=== PATIENT | male | born 1975 | race Caucasian/White ===

== ENCOUNTER 2018-08-23 22:59 | Inpatient (IN) | payer MEDICAID, OTHER ==
[2018-08-24 00:01] LABS: Amphetamine Screen,Urine Not Detected (NotDetected); Barbiturate Screen,Urine Not Detected (NotDetected); Benzodiazepines Screen,Urine Not Detected (NotDetected); Cocaine Screen,Urine Not Detected (NotDetected); Methadone Screen, Urine Not Detected (NotDetected); Opiate Screen,Urine Not Detected (NotDetected); Oxycodone Screen, Urine Not Detected (NotDetected); Phencyclidine Screen,Urine Not Detected (NotDetected); Tricyclic Antidepressant,Urine Not Detected (NotDetected); Urn Cannabinoid Scrn Not Detected (NotDetected)
--- NOTE | 2018-08-24 00:10 | ED ---
Psych HPI - General Chief Complaint: Psychiatric Symptoms Stated Complaint: Family Petition Suicidal Time Seen by Provider: 08/23/18 23:15 Source: patient, family () Mode of arrival: ambulatory Limitations: no limitations - History of Present Illness Initial Comments: This patient is a 43-year-old man is here for psychiatric evaluation. When I interview the patient, he states that he is here because she had a disagreement with his and they argued. The presents additional information, that the patient had made a noose and was stating that he planned to hang himself when the family went to sleep tonight. The patient had also at one point told her that he may kill all of them instead. The patient does have previous history of depression and had been taking an antidepressant until a number of months ago when he had a flare of pancreatitis and weaned himself off the medication thinking it may be responsible. The patient has had previous suicide attempt. The patient's father had committed suicide. MD Complaint: suicidal ideation -: days(s) Associated Psychiatric Symptoms: depression, suicidal ideation History of same: Yes Quality: getting worse Improves With: none Worsens With: none Context: not taking psychiatric medications Associated Symptoms: denies other symptoms - Related Data Home Medications Medication Instructions Recorded Confirmed INSULIN LISPRO (HumaLOG) [HumaLOG] 12 unit SQ TID 08/23/18 08/23/18 Lisinopril [Zestril] 10 mg PO DAILY 08/23/18 08/23/18 NIFEdipine [NIFEdipine ER] 30 mg PO DAILY 08/23/18 08/23/18 metFORMIN HCL [Glucophage] 500 mg PO DIRECTED 08/23/18 08/23/18 oxyCODONE HCL [OxyCONTIN] 20 mg PO Q12H 08/23/18 08/23/18 oxyCODONE HCL [oxyCODONE HCL (IR)] 15 mg PO TID 08/23/18 08/23/18 Allergies Allergy/AdvReac Type Severity Reaction Status Date / Time meperidine HCl [From Demerol] Allergy Rash/Hives Verified 11/18/13 19:33 Review of Systems ROS Statement: Those systems with pertinent positive or pertinent negative responses have been documented in the HPI. ROS Other: All systems not noted in ROS Statement are negative. Constitutional: Denies: fever Respiratory: Denies: cough, dyspnea Cardiovascular: Denies: chest pain, palpitations Gastrointestinal: Denies: abdominal pain, nausea, vomiting, diarrhea Musculoskeletal: Denies: back pain Skin: Denies: rash Neurological: Denies: headache, weakness Psychiatric: Reports: as per HPI, depression, suicidal thoughts. Denies: auditory hallucinations, visual hallucinations, homicidal thoughts Past Medical History Past Medical History: Diabetes Mellitus, Hypertension History of Any Multi-Drug Resistant Organisms: None Reported Past Surgical History: Tonsillectomy Additional Past Surgical History / Comment(s): lipoma removed from stomach, knee, Past Psychological History: Bipolar Smoking Status: Never smoker Past Alcohol Use History: None Reported Past Drug Use History: Marijuana General Exam Limitations: no limitations General appearance: alert, in no apparent distress Head exam: Present: atraumatic, normocephalic Eye exam: Present: normal appearance. Absent: scleral icterus, conjunctival injection Respiratory exam: Present: normal lung sounds bilaterally. Absent: respiratory distress, wheezes, rales, rhonchi, stridor Cardiovascular Exam: Present: regular rate, normal rhythm, normal heart sounds. Absent: systolic murmur, diastolic murmur, rubs, gallop GI/Abdominal exam: Present: soft. Absent: distended, tenderness, guarding, rebound, rigid, mass Extremities exam: Present: normal inspection, normal capillary refill Back exam: Present: normal inspection Neurological exam: Present: alert Psychiatric exam: Present: normal affect. Absent: agitated, anxious, flat affect, manic, homicidal ideation Skin exam: Present: warm, dry, intact, normal color. Absent: rash Course Vital Signs 08/23/18 23:02 Temperature 98.2 F Pulse Rate 71 Respiratory 20 Rate Blood Pressure 161/111 O2 Sat by Pulse 93 L Oximetry Medical Decision Making - Lab Data Lab Results 08/23/18 08/24/18 Range/Units 23:17 01:38 POC Glucose (mg/dL) 174 H (75-99) mg/dL POC Glu Laundry Operator ID Elvia Morales Urine Opiates Screen Not Detected (NotDetected) Ur Oxycodone Screen Not Detected (NotDetected) Urine Methadone Screen Not Detected (NotDetected) Ur Propoxyphene Screen Not Detected (NotDetected) Ur Barbiturates Screen Not Detected (NotDetected) U Tricyclic Antidepress Not Detected (NotDetected) Ur Phencyclidine Scrn Not Detected (NotDetected) Ur Amphetamines Screen Not Detected (NotDetected) U Methamphetamines Scrn Not Detected (NotDetected) U Benzodiazepines Scrn Not Detected (NotDetected) Urine Cocaine Screen Not Detected (NotDetected) U Marijuana (THC) Screen Not Detected (NotDetected) Disposition Clinical Impression: Mood disorder, Suicidal ideation Disposition: ADMITTED IP TO THIS [facility] Condition: Fair Is patient prescribed a controlled substance at d/c from ED?: No Referrals: Eden Jacobson MD [Primary Care Provider] - 1-2 days
[2018-08-24 01:41] LABS: Glucose,Whole Blood 174 mg/dL (75-99)
[2018-08-24] MEDS ORDERED: MAGNESIUM HYDROXIDE 2,400 MG/10 ML CUP PO PRN (03:01)
[2018-08-24] MEDS ORDERED: LORazepam 1 MG TAB PO PRN (03:01)
[2018-08-24] MEDS ORDERED: MAG HYDROX/AL HYDROX/SIMETH 30 ML CUP PO PRN (03:01)
[2018-08-24] MEDS ORDERED: ZIPRASIDONE 20 MG VIAL IM PRN (03:01)
[2018-08-24 03:51] LABS: Appearance,Urine Turbid (Clear); Bacteria,Urine Rare /hpf; Bilirubin,Urine Negative (Negative); Blood,Urine Negative (Negative); Color,Urine Yellow; Glucose,Urine (UA) 3+ (Negative); Hyaline Casts,Urine 1 /lpf (0-2); Ketones,Urine Negative (Negative); Leukocyte Esterase,Urine Negative (Negative); Mucus,Urine Rare /hpf; Nitrite,Urine Negative (Negative); PH, Urine 5.5 (5.0-8.0); Protein,Urine Negative (Negative); RBC,Urine <1 /hpf (0-5); Specific Gravity,Urine 1.027 (1.001-1.035); Uric Acid Crystals,Urine Moderate /hpf; Urobilinogen,Urine <2.0 mg/dL (<2.0); WBC,Urine <1 /hpf (0-5)
[2018-08-24] MEDS: ACETAMINOPHEN TAB 325 MG TAB PO PRN ×2 (03:52→17:43)
[2018-08-24 07:08] LABS: Glucose,Whole Blood 171 mg/dL (75-99)
[2018-08-24 07:34] LABS: Basophils # (A) 0.1 k/uL (0-0.2); Basophils % (A) 1 %; Eosinophils # (A) 0.2 k/uL (0-0.7); Eosinophils % (A) 3 %; HCT 40.9 % (39.0-53.0); HGB 13.1 gm/dL (13.0-17.5); Lymphocytes # (A) 2.6 k/uL (1.0-4.8); Lymphocytes % (A) 34 %; MCH 28.8 pg (25.0-35.0); MCHC 32.2 g/dL (31.0-37.0); MCV 89.7 fL (80.0-100.0); Mean Platelet Volume 7.5; Monocytes # (A) 0.5 k/uL (0-1.0); Monocytes % (A) 6 %; Neutrophils % (A) 53 %; Platelet Count 251 k/uL (150-450); RBC 4.56 m/uL (4.30-5.90); RDW 13.2 % (11.5-15.5); WBC 7.6 k/uL (3.8-10.6)
[2018-08-24 07:55] LABS: ALT 49 U/L (21-72); AST 24 U/L (17-59); Albumin 4.3 g/dL (3.5-5.0); Alkaline Phosphatase 65 U/L (38-126); Anion Gap 9 mmol/L; Bilirubin, Delta 0.2 mg/dL (0.0-0.2); Bilirubin,Unconjugated 0.3 mg/dL (0.0-1.1); Blood Urea Nitrogen 26 mg/dL (9-20); Calcium 9.7 mg/dL (8.4-10.2); Carbon Dioxide 25 mmol/L (22-30); Chloride 106 mmol/L (98-107); Cholesterol 215 mg/dL (<200); Glucose 177 mg/dL (74-99); HDL Cholesterol 29 mg/dL (40-60); Potassium 4.3 mmol/L (3.5-5.1); Sodium 140 mmol/L (137-145); Total Bilirubin 0.5 mg/dL (0.2-1.3); Total Protein 7.2 g/dL (6.3-8.2)
--- NOTE | 2018-08-24 07:59 | P.CONS ---
History of Present Illness - Reason for Consult Consult date: 08/24/18 - History of Present Illness The patient is a 43 yo M with a PMH of DM, HTN, and depression presented to the ED after he threatened to hang himself due to disagreements with his . The patient notes that he constantly argues with his and that she is very controlling and thereby he lashes out at her. As per the chart, the had reported the patient making a noose and threatening to hang himself on video that was captured by his children and sent to the . She also reports that the patient had stopped taking his antidepressents and had been gradually becoming more verbally abusive at her. The patient reports that he wishes to file for divorce and denied any homicidal or suicidal ideation. He further de nied any additional complaints including chest pain or SOB. Denied abdominal pain, nausea, or vomiting. Notes compliance to his medications. Review of Systems Pertinent positives and negatives as discussed in HPI, a complete review of systems was performed and all other systems are negative. Past Medical History Past Medical History: Diabetes Mellitus, Hypertension History of Any Multi-Drug Resistant Organisms: None Reported Past Surgical History: Tonsillectomy Additional Past Surgical History / Comment(s): lipoma removed from stomach, knee, Past Psychological History: Bipolar Smoking Status: Never smoker Past Alcohol Use History: None Reported Past Drug Use History: Marijuana Medications and Allergies Home Medications Medication Instructions Recorded Confirmed Type INSULIN LISPRO (HumaLOG) [HumaLOG] 12 unit SQ TID 08/23/18 08/24/18 History Lisinopril [Zestril] 10 mg PO DAILY 08/23/18 08/24/18 History NIFEdipine [NIFEdipine ER] 30 mg PO DAILY 08/23/18 08/24/18 History metFORMIN HCL [Glucophage] 500 mg PO DIRECTED 08/23/18 08/24/18 History oxyCODONE HCL [OxyCONTIN] 20 mg PO Q12H 08/23/18 08/24/18 History oxyCODONE HCL [oxyCODONE HCL (IR)] 15 mg PO TID 08/23/18 08/24/18 History Allergies Allergy/AdvReac Type Severity Reaction Status Date / Time meperidine HCl [From Demerol] Allergy Rash/Hives Verified 08/24/18 04:03 Physical Exam Vitals: Vital Signs Temp Pulse Pulse Resp BP BP Pulse Ox 04/17/19 03:32 97.9 F 82 16 148/78 98 08/24/18 03:31 69 16 150/100 95 08/23/18 23:02 98.2 F 71 20 161/111 93 L Intake and Output 08/23/18 08/24/18 08/24/18 22:59 06:59 14:59 Other: Weight 113.398 kg General: non toxic, no distress, appears at stated age, obese Derm: no unusual rashes/lesions no unusual ecchymoses, warm, dry Head: atraumatic, normocephalic, symmetric Eyes: EOMI, no lid lag, anicteric sclera, pupils equal round reactive to light ENT: Nose and ears atraumatic, no thrush, no pharyngeal erythema Neck: No thyromegaly, no cervical lymphadenopathy, trachea midline, supple Mouth: no lip lesion, mucus membranes moist Cardiovascular: S1S2 reg, no murmur, positive posterior tibial pulse bilateral, no edema, capillary refill less than 2 seconds Lungs: CTA bilateral, no rhonchi, no rales , no accessory muscle use Abdominal: soft, nontender to palpation, no guarding, no appreciable organomegaly, normal bowel sounds Ext: no gross muscle atrophy, muscle strength 5 out of 5 in all 4 extremities grossly, no contractures, Neuro: CN II-XI grossly intact, light touch intact all 4 extremities, finger to nose within normal limits, Psych: Alert, oriented, depressed affect Results CBC & Chem 7: 08/24/18 07:16 Labs: Abnormal Lab Results - Last 24 Hours (Table) 08/24/18 08/24/18 08/24/18 Range/Units 01:38 03:12 07:06 POC Glucose (mg/dL) 174 H 171 H (75-99) mg/dL Urine Glucose (UA) 3+ H (Negative) Uric Acid Crystals Moderate H (None) /hpf Urine Bacteria Rare H (None) /hpf Urine Mucus Rare H (None) /hpf Assessment and Plan Plan: Diabetes Mellitus -Will resume home medications including Metformin and Lispro insulin at decreased dose of 5 U TID -Check A1C HTN -Resume home medications: Lisinopril and Nifedipine Depression and suicidal ideation -As per psychiatry Morbid obesity -Advised patient on importance of weight loss Thank you for allowing us to participate in the care of this patient. We will follow peripherally. Do not hesitate to contact us with questions. Someone can be reached from the [facility] hospitalist group at all hours of the day at [phone].
[2018-08-24 08:08] LABS: Triglycerides 810 mg/dL (<150)
[2018-08-24] MEDS: INSULIN ASPART (NovoLOG) 100 UNIT/ML VIAL SQ SCH ×3 (08:21→18:27)
[2018-08-24] MEDS: LISINOPRIL 10 MG TAB PO SCH (08:23)
[2018-08-24] MEDS ORDERED: CITALOPRAM HYDROBROMIDE 20 MG TAB PO STA (09:36)
[2018-08-24] MEDS: NIFEdipine XL 30 MG TAB.ER.24 PO SCH (09:47)
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
[2018-08-24] MEDS: HYDROcodone/APAP 5-325MG 1 EACH TAB PO PRN ×2 (11:04→19:20)
[2018-08-24] MEDS: metFORMIN 500 MG TAB PO SCH (11:04)
[2018-08-24 12:31] LABS: Glucose,Whole Blood 128 mg/dL (75-99)
[2018-08-24 14:16] LABS: Hemoglobin A1C 7.5 % (4.0-6.0)
[2018-08-24] MEDS ORDERED: BENZONATATE 100 MG CAP PO PRN (14:42)
[2018-08-24] MEDS ORDERED: ALBUTEROL INHALER 60 PUFF/8 GM INHALER INHALATION PRN (14:43)
[2018-08-24 17:33] LABS: Glucose,Whole Blood 108 mg/dL (75-99)
[2018-08-24 19:52] LABS: Glucose,Whole Blood 209 mg/dL (75-99)
[2018-08-25 07:09] LABS: Glucose,Whole Blood 159 mg/dL (75-99)
[2018-08-25] MEDS: NIFEdipine XL 30 MG TAB.ER.24 PO SCH (08:00)
[2018-08-25] MEDS: LISINOPRIL 10 MG TAB PO SCH (08:00)
[2018-08-25] MEDS: INSULIN ASPART (NovoLOG) 100 UNIT/ML VIAL SQ SCH ×3 (08:00→17:56)
[2018-08-25] MEDS: metFORMIN 500 MG TAB PO SCH (08:00)
[2018-08-25] MEDS: CITALOPRAM HYDROBROMIDE 20 MG TAB PO SCH (10:50)
[2018-08-25] MEDS: HYDROcodone/APAP 5-325MG 1 EACH TAB PO PRN ×2 (10:51→19:31)
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
[2018-08-25 12:51] LABS: Glucose,Whole Blood 115 mg/dL (75-99)
[2018-08-25] MEDS: ACETAMINOPHEN TAB 325 MG TAB PO PRN (16:35)
[2018-08-25 17:41] LABS: Glucose,Whole Blood 132 mg/dL (75-99)
[2018-08-25 20:13] LABS: Glucose,Whole Blood 163 mg/dL (75-99)
--- NOTE | 2018-08-26 05:19 | P.PN ---
Progress Note - Text Progress Note Date: 08/26/18 The patient was seen in the mental health unit for follow-up to complaints of left flank pain and swelling. The patient reports that he had a lipoma removed from his left flank several weeks ago, after which she developed gradually increasing swelling of the region which was drained by his surgeon in the outpatient setting prior to admission 2-3 weeks ago. He was advised by the surgeon for follow-up for possible re-drainage. Patient notes that the swelling has increased gradually and has now become uncomfortable. He otherwise denied fever, chills, nausea, vomiting, abdominal pain, diarrhea. General: Non-toxic, in no acute distress, appears stated age, obese HEENT: NC/AT, anicteric sclerae, moist conjunctiva, no lid-lag, PERRLA Cardiovascular: S1/S2 wnl, no murmurs, rubs, or gallops Lungs: Clear to auscultation, normal respiratory effort, no accessory muscle use Abdominal: Soft, non-tender, non-distended, no guarding, rebound, or rigidity Skin: Warm, dry, left flank postsurgical scar with underlying swelling, possible collection, with tenderness to palpation, mild erythema Extremities: No edema or contractures Psychiatric: Alert and oriented to person, place and time, flat affect Neuro: CN II-XII grossly intact, Strength 5/5 in all 4 extremities, Speech intact, Sensation to light touch grossly intact throughout Plan -Consult surgery for possible drainage -Obtain ultrasound
[2018-08-26 06:20] LABS: Glucose,Whole Blood 156 mg/dL (75-99)
[2018-08-26 06:23] VITALS: TEMP 98
[2018-08-26] MEDS: INSULIN ASPART (NovoLOG) 100 UNIT/ML VIAL SQ SCH (08:07)
[2018-08-26] MEDS: metFORMIN 500 MG TAB PO SCH (08:14)
[2018-08-26] MEDS: NIFEdipine XL 30 MG TAB.ER.24 PO SCH (08:14)
[2018-08-26] MEDS: LISINOPRIL 10 MG TAB PO SCH (08:14)
[2018-08-26] MEDS: CITALOPRAM HYDROBROMIDE 20 MG TAB PO SCH (08:14)
[2018-08-26] MEDS: HYDROcodone/APAP 5-325MG 1 EACH TAB PO PRN (08:17)
[2018-08-26 08:21] VITALS: BP 156/85; PULSE 90; RESP 16
--- NOTE | 2018-08-26 08:49 | P.DS ---
Providers Date of admission: 08/24/18 02:51 Expected date of discharge: 08/26/18 Attending physician: Isaac Dennis Consults: 08/24/18 03:01 Consult Physician Routine Consulting Provider: Tino Heredia Consult Reason/Comments: For H & P for Medical Follow Up Do you want consulting provider notified?: Yes 08/26/18 05:08 Consult Physician Urgent Consulting Provider: Bishnu Coffey Consult Reason/Comments: L flank swelling w/ possible fluid collection Do you want consulting provider notified?: Yes Primary care physician: Eden Jacobson - Discharge Diagnosis(es) (1) Major depressive disorder, recurrent severe without psychotic features Current Visit: Yes Status: Acute Priority: High (2) Cannabis use disorder, mild, abuse Current Visit: Yes Status: Acute Priority: Medium Hospital Course: Brief summary admission note: This patient is a 43-year-old male who was admitted to the mental health unit through the emergency room for suicidal ideation. The patient was petition by his stating he was not caring for himself not taking his medication and made threats to harm himself. The patient states that he felt overwhelmed by the state of his marriage and financial difficulties. He admits that he did fashion a noose at home in front of his child but had no intention of using it. He states he made comments and took those actions to affect his . For full details please refer to my psychiatric evaluation dated 08/24/2018. Summary of hospital course: The patient was admitted to the mental health unit he decided to sign in voluntarily. He reviewed his presenting symptoms and treatment options. He felt he had been successful in using Celexa at 40 mg daily. The medication was restarted and titrated to that dose. He was seen by internal medicine for routine history and physical exam. He was seen by social work for a psychosocial assessment and for discharge planning purposes. He participated in a support meeting facilitated by social work involving his which seemed to go well the patient reported no suicidal ideation while hospitalized. He was directable he attended groups. He demonstrated no ability to care for himself. He was able to verbalize stressors and discussed possible coping skills. He is motivated to continue working with his outpatient therapist and is motivated for marital counseling. He is willing to accept that he needs to discontinue use of marijuana. He feels he can do that without an inpatient program. Mental status exam: The patient is alert he is dressed in his own clothing hygiene is adequate is mildly disheveled. Eye contact is appropriate speech is fluent spontaneous nonpressured. He reports his mood is better he denies having any suicidal or homicidal ideation intent or plan. At no point did he ever verbalize any thoughts of harming his or children. He reports no auditory or visual hallucinations or any specific delusions. There is no observed evidence of psychosis. Thought process is linear he demonstrates no tangential thinking loose associations or flight of ideas. He does not appear hypomanic or manic. He is calmly seated in the chair he demonstrates no verbal or physical aggressiveness. He demonstrates no involuntary repetitive movements. Affect is appropriately expressive he appears euthymic overall. He is oriented to person place and date. Insight and judgment have improved. Impressions 1. Major depressive disorder recurrent severe without psychosis, cannabis use disorder 2. Medical comorbidities including chronic pain diabetes hypertriglyceridemia history of pancreatitis 3. Significant marital and financial strain Plan: The patient will be discharged mental health unit today to return home residing with his family. He will continue on Celexa 40 mg daily. He will continue working with his outpatient therapist and plans on engaging in marital counseling with his . He feels he does not need inpatient chemical dependency treatment to address his cannabis use. He is instructed to abstain from cannabis use as it may affect his mood and elevate his safety risk. There is no imminent safety risk is appropriate for transition back to outpatient care. He is instructed to return to the hospital any acute safety concerns. Patient Condition at Discharge: Stable Plan - Discharge Summary New Discharge Prescriptions: New Citalopram Hydrobromide [CeleXA] 40 mg PO DAILY #30 tab Continue Lisinopril [Zestril] 10 mg PO DAILY metFORMIN HCL [Glucophage] 500 mg PO DIRECTED oxyCODONE HCL [oxyCODONE HCL (IR)] 15 mg PO TID oxyCODONE HCL [OxyCONTIN] 20 mg PO Q12H NIFEdipine [NIFEdipine ER] 30 mg PO DAILY INSULIN LISPRO (HumaLOG) [humaLOG] 12 unit SQ TID Discharge Medication List INSULIN LISPRO (HumaLOG) [humaLOG] 12 unit SQ TID 08/23/18 [History] Lisinopril [Zestril] 10 mg PO DAILY 08/23/18 [History] NIFEdipine [NIFEdipine ER] 30 mg PO DAILY 08/23/18 [History] metFORMIN HCL [Glucophage] 500 mg PO DIRECTED 08/23/18 [History] oxyCODONE HCL [OxyCONTIN] 20 mg PO Q12H 08/23/18 [History] oxyCODONE HCL [oxyCODONE HCL (IR)] 15 mg PO TID 08/23/18 [History] Citalopram Hydrobromide [CeleXA] 40 mg PO DAILY #30 tab 08/26/18 [Rx] Follow up Appointment(s)/Referral(s): Steve Figueroa [Outside] - 09/09/18 9:00 am (Pt already had appointment scheduled, therapist is out of office [id number] is the soonest open) Eden Jacobson MD [Primary Care Provider] - 1-2 days
== END 2018-08-26 01:44 | disposition home or self-care (01) | DRG 885 ==
LOC: EC 22:59 → 3MHU 08-24 02:51
PROVIDERS: ADMIT Psychiatry & Neurology Psychiatry; ATTEND Psychiatry & Neurology Psychiatry
DX: F31.4 Bipolar disorder, current episode depressed, severe, without psychotic features (principal); R45.851 Suicidal ideations; E11.9 Type 2 diabetes mellitus without complications; G89.29 Other chronic pain; I10 Essential (primary) hypertension; E78.1 Pure hyperglyceridemia; Z62.810 Personal history of physical and sexual abuse in childhood; E66.01 Morbid (severe) obesity due to excess calories; Z68.37 Body mass index [BMI] 37.0-37.9, adult; Z88.5 Allergy status to narcotic agent; Z91.5 Personal history of self-harm; Z79.4 Long term (current) use of insulin; Z79.891 Long term (current) use of opiate analgesic; Z79.899 Other long term (current) drug therapy; Z63.0 Problems in relationship with spouse or partner; Z59.9 Problem related to housing and economic circumstances, unspecified; Z71.3 Dietary counseling and surveillance
CPT/HCPCS: 36415; 80053; 80061; 80306; 81001; 82075; 82248; 83036; 84443; 85025; 94640; 99285

== ENCOUNTER 2021-01-07 21:57 | Emergency (ER) | payer OTHER ==
[2021-01-07 22:12] VITALS: RESP 18; TEMP 98.2
[2021-01-07] MEDS ORDERED: SODIUM CHLORIDE 0.9% 50 ML IVPB ONE (22:45)
--- NOTE | 2021-01-07 22:59 | ED ---
General Adult HPI - General Chief complaint: Recheck/Abnormal Lab/Rx Stated complaint: COVID+,Wants bam Time Seen by Provider: 01/07/21 22:16 Source: patient, RN notes reviewed Mode of arrival: ambulatory Limitations: no limitations - History of Present Illness Initial comments: 45-year-old male presents emergency Department with chief complaint of COVID-19. Patient states she started symptoms couple days noticed a positive patient has bodyaches cough congestion denies any nausea vomiting diarrhea constipation or shortness of breath mild headache no other complaints. - Related Data Home Medications Medication Instructions Recorded Confirmed INSULIN LISPRO (HumaLOG) [humaLOG] 12 unit SQ TID 08/23/18 08/24/18 Lisinopril [Zestril] 10 mg PO DAILY 08/23/18 08/24/18 NIFEdipine [NIFEdipine ER 30 mg PO DAILY 08/23/18 08/24/18 (Osmotic)] metFORMIN HCL [Glucophage] 500 mg PO DIRECTED 08/23/18 08/24/18 oxyCODONE HCL [OxyCONTIN] 20 mg PO Q12H 08/23/18 08/24/18 oxyCODONE HCL [oxyCODONE HCL (IR)] 15 mg PO TID 08/23/18 08/24/18 Previous Rx's Medication Instructions Recorded Citalopram Hydrobromide [CeleXA] 40 mg PO DAILY #30 tab 08/26/18 Allergies Allergy/AdvReac Type Severity Reaction Status Date / Time hydrochlorothiazide Allergy Unknown Verified 01/07/21 22:13 meperidine HCl [From Demerol] Allergy Rash/Hives Verified 01/07/21 22:12 Review of Systems ROS Statement: Those systems with pertinent positive or pertinent negative responses have been documented in the HPI. ROS Other: All systems not noted in ROS Statement are negative. Past Medical History Past Medical History: Diabetes Mellitus, Hypertension History of Any Multi-Drug Resistant Organisms: None Reported Past Surgical History: Tonsillectomy Additional Past Surgical History / Comment(s): lipoma removed from stomach, knee, Past Psychological History: Bipolar Past Alcohol Use History: None Reported Past Drug Use History: Marijuana General Exam Limitations: no limitations General appearance: alert, in no apparent distress Head exam: Present: atraumatic, normocephalic, normal inspection Eye exam: Present: normal appearance, PERRL, EOMI. Absent: scleral icterus, conjunctival injection, periorbital swelling ENT exam: Present: normal exam, mucous membranes moist Neck exam: Present: normal inspection, full ROM. Absent: tenderness, meningismus, lymphadenopathy Respiratory exam: Present: normal lung sounds bilaterally. Absent: respiratory distress, wheezes, rales, rhonchi, stridor Cardiovascular Exam: Present: regular rate, normal rhythm, normal heart sounds. Absent: systolic murmur, diastolic murmur, rubs, gallop, clicks GI/Abdominal exam: Present: soft, normal bowel sounds. Absent: distended, tenderness, guarding, rebound, rigid Course Vital Signs 01/07/21 22:08 Temperature 98.2 F Pulse Rate 86 Respiratory 18 Rate Blood Pressure 158/88 O2 Sat by Pulse 96 Oximetry Medical Decision Making - Medical Decision Making Patient received monoclonal antibodies. Patient's vitals are stable be discharged in stable condition return parameters discussed. Disposition Clinical Impression: COVID-19 Disposition: HOME SELF-CARE Condition: Stable Instructions (If sedation given, give patient instructions): Coronavirus Disease 2019 (COVID-19) Additional Instructions: Please return to the Emergency Department if symptoms worsen or any other concerns. Is patient prescribed a controlled substance at d/c from ED?: No Referrals: None,Stated [Primary Care Provider] - 1-2 days Time of Disposition: 22:59
[2021-01-07] MEDS ORDERED: CASIRIVIMAB (REGN10933) (EUA) 600 MG, IMDEVIMAB (REGN10987) (EUA) 600 MG in SODIUM CHLO... IVPB ONE (23:00)
[2021-01-08 01:08] VITALS: BP 159/113; PULSE 77
== END 2021-01-08 01:08 | disposition home or self-care (01) ==
LOC: EC 21:57
DX: U07.1 COVID-19 (principal); I10 Essential (primary) hypertension; E11.9 Type 2 diabetes mellitus without complications; F31.9 Bipolar disorder, unspecified; F12.90 Cannabis use, unspecified, uncomplicated; Z79.4 Long term (current) use of insulin; Z88.5 Allergy status to narcotic agent; Z90.89 Acquired absence of other organs
CPT/HCPCS: 96365; 99283

== ENCOUNTER 2022-11-04 11:19 | Emergency (ER) | payer OTHER ==
[2022-11-04 11:30] VITALS: TEMP 98.5
[2022-11-04] MEDS ORDERED: DIPH,PERTUS(ACELL)TETVAC-LF 0.5 ML VIAL IM ONE (12:01)
[2022-11-04] MEDS ORDERED: MORPHINE SULFATE 4 MG/ML SYRINGE IVP STA ×2 (12:01→14:59)
--- NOTE | 2022-11-04 12:05 | ED ---
General Adult HPI - General Chief complaint: Wound/Laceration Stated complaint: Cut L Thumb Tip off Time Seen by Provider: 11/04/22 11:48 Source: patient, RN notes reviewed Mode of arrival: ambulatory Limitations: no limitations - History of Present Illness Initial comments: 47-year-old male presents emergency department chief complaint of left thumb in jury. He states that earlier today he was working with a chop saw earlier today when he got his left medial thumb. He reports normal sensation and range of motion in the thumb. Patient unsure if he is up-to-date on his tetanus vaccine. Past medical history includes hypertension, diabetes. Denies ALLERGIES to antibiotics. - Related Data Home Medications Medication Instructions Recorded Confirmed INSULIN LISPRO (HumaLOG) [humaLOG] 12 unit SQ TID 08/23/18 08/24/18 NIFEdipine [NIFEdipine ER 30 mg PO DAILY 08/23/18 08/24/18 (Osmotic)] lisinopriL [Zestril] 10 mg PO DAILY 08/23/18 08/24/18 metFORMIN HCL [Glucophage] 500 mg PO DIRECTED 08/23/18 08/24/18 oxyCODONE HCL [OxyCONTIN] 20 mg PO Q12H 08/23/18 08/24/18 oxyCODONE HCL [oxyCODONE HCL (IR)] 15 mg PO TID 08/23/18 08/24/18 Previous Rx's Medication Instructions Recorded Citalopram Hydrobromide [CeleXA] 40 mg PO DAILY #30 tab 08/26/18 Cephalexin [Keflex] 500 mg PO Q6HR #40 cap 11/04/22 Allergies Allergy/AdvReac Type Severity Reaction Status Date / Time hydrochlorothiazide Allergy Unknown Verified 11/04/22 11:30 meperidine HCl [From Demerol] Allergy Rash/Hives Verified 11/04/22 11:30 Review of Systems ROS Statement: Those systems with pertinent positive or pertinent negative responses have been documented in the HPI. ROS Other: All systems not noted in ROS Statement are negative. Past Medical History Past Medical History: Diabetes Mellitus, Hypertension History of Any Multi-Drug Resistant Organisms: None Reported Past Surgical History: Tonsillectomy Additional Past Surgical History / Comment(s): lipoma removed from stomach, knee, Past Psychological History: Bipolar Past Alcohol Use History: None Reported Past Drug Use History: Marijuana General Exam Limitations: no limitations General appearance: alert, in no apparent distress Head exam: Present: atraumatic, normocephalic, normal inspection Eye exam: Present: normal appearance ENT exam: Present: normal exam, mucous membranes moist Neck exam: Present: normal inspection. Absent: tenderness, meningismus, lymphadenopathy Respiratory exam: Present: normal lung sounds bilaterally. Absent: respiratory distress, wheezes, rales, rhonchi, stridor Cardiovascular Exam: Present: regular rate, normal rhythm, normal heart sounds. Absent: systolic murmur, diastolic murmur, rubs, gallop, clicks Extremities exam: Present: tenderness, normal capillary refill, other (Laceration to left thumb about 60% circumferential attached on the lateral aspect, radial pulses 2+, normal cap refill, normal sensation in distal thumb, full flexion and extension of DIP of thumb) Back exam: Present: normal inspection Neurological exam: Present: alert, oriented X3 Psychiatric exam: Present: normal affect, normal mood Skin exam: Present: warm, dry, normal color, other (Laceration to left thumb). Absent: rash Course Vital Signs 11/04/22 11/04/22 11/04/22 11:27 11:30 14:00 Temperature 98.5 F Pulse Rate 95 85 86 Respiratory 18 20 16 Rate Blood Pressure 145/107 145/100 145/99 O2 Sat by Pulse 97 98 98 Oximetry 11/04/22 16:24 Temperature Pulse Rate Respiratory 18 Rate Blood Pressure O2 Sat by Pulse 98 Oximetry Procedures - Laceration Laceration #1 Consent Obtained: verbal consent Indication: laceration Site: hand Size (cm): 3 Description: linear Anesthetic Used: lidocaine 1% Anesthesia Technique: local infiltration, nerve block Pre-repair: wound explored, irrigated extensively (1L) Type of Sutures: other ( monofilament) Size of Sutures: 5-0 Number of Sutures: 7 Technique: simple, interrupted Patient Tolerated Procedure: well, no complications Medical Decision Making - Medical Decision Making Was pt. sent in by a medical professional or institution (DEVONTE Hernandez, [employer], urgent care, hospital, or intermediate...) When possible be specific @ -No Did you speak to anyone other than the patient for history (EMS, parent, family, police, friend...)? What history was obtained from this source @ -No Did you review nursing and triage notes (agree or disagree)? Why? @ -I reviewed and agree with nursing and triage notes Were old charts reviewed (outside hosp., previous admission, EMS record, old EKG, old radiological studies, urgent care reports/EKG's, intermediate records)? Report findings @ -No old charts were reviewed Differential Diagnosis (chest pain, altered mental status, abdominal pain women, abdominal pain men, vaginal bleeding, weakness, fever, dyspnea, syncope, headache, dizziness, GI bleed, back pain, seizure, CVA, palpatations, mental health, musculoskeletal)? @ -Differential Musculoskeletal Muscular strain, contusion, ligament sprain, fracture, arthritis, septic arthritis, bursitis, cellulitis, muscle spasm, nerve compression, DVT, arterial occlusion, herpes zoster, electrolyte abnormality, tumor.... This is not meant to be in all inclusive list EKG interpreted by me (3pts min.). @ -none X-rays interpreted by me (1pt min.). @ -X-ray the left thumb shows a minimally displaced transverse fracture of the distal first phalanx with associated laceration and suspected tiny osseous fragments within the surrounding soft tissue CT interpreted by me (1pt min.). @ -None done U/S interpreted by me (1pt. min.). @ -None done What testing was considered but not performed or refused? (CT, X-rays, U/S, labs)? Why? @ -None What meds were considered but not given or refused? Why? @ -None Did you discuss the management of the patient with other professionals (professionals i.e. , PA, [employer], lab, RT, psych nurse, social media campaign manager, helper steel fabrication, teacher, operations officer trust department, case liner)? Give summary @ -Yes management was discussed with Stacie Posey PA-C at [facility] who recommended antibiotics, extensive irrigation, loose approximation of the wound Was smoking cessation discussed for >3mins.? @ -No Was critical care preformed (if so, how long)? @ -No Were there social determinants of health that impacted care today? How? (Homelessness, low income, unemployed, alcoholism, drug addiction, transportation, low edu. Level, literacy, decrease access to med. care, assisted, rehab)? @ -No Was there de-escalation of care discussed even if they declined (Discuss DNR or withdrawal of care, Hospice)? DNR status @ -No What co-morbidities impacted this encounter? (DM, HTN, Smoking, COPD, CAD, Cancer, CVA, ARF, Chemo, Hep., AIDS, mental health diagnosis, sleep apnea, morbid obesity)? @ -None Was patient admitted / discharged? Hospital course, mention meds given and route, prescriptions, significant lab abnormalities, going to OR and other pertinent info. @ -Discharged. Patient presented to emergency department chief complaint of thumb laceration after getting his finger caught in a chop saw. XR showed transverse fracture of the distal first phalanx of the left hand. Patient was administered 2g cefazolin and 4mg of morphine. Management discussed with Stacie Posey PA-C at [facility] recommended antibiotics, extensive irrigation and loose approximation of the wound which was performed with outpatient follow-up in the next 1-[address] Lujan. Wound was irrigated with 1L of normal saline. Wound was loosely approximated with 7 simple interrupted sutures. Prescription sent for Keflex patient advised to follow-up with Dr. Lujan in 1-2 days. Patient stable at time of discharge. Case discussed with my attending, Dr. Shelley Undiagnosed new problem with uncertain prognosis? @ -No Drug Therapy requiring intensive monitoring for toxicity (Heparin, Nitro, Insulin, Cardizem)? @ -No Were any procedures done? @ -laceration repair Diagnosis/symptom? @ -laceration Acute, or Chronic, or Acute on Chronic? @ -acute Uncomplicated (without systemic symptoms) or Complicated (systemic symptoms)? @ -uncomplicated Side effects of treatment? @ -No Exacerbation, Progression, or Severe Exacerbation? @ -No Poses a threat to life or bodily function? How? (Chest pain, [place], [place], pneumonia, PE, COPD, DKA, ARF, appy, cholecystitis, CVA, Diverticulitis, Homicidal, Suicidal, threat to staff... and all critical care pts) @ -No Diagnosis/symptom? @ -Transverse fracture of distal phalanx the first digit of left hand Acute, or Chronic, or Acute on Chronic? @ -acute Uncomplicated (without systemic symptoms) or Complicated (systemic symptoms)? @ -uncomplicated Side effects of treatment? @ -none Exacerbation, Progression, or Severe Exacerbation] @ -no Poses a threat to life or bodily function? @ -no Disposition Clinical Impression: Laceration, Fracture of distal phalanx of finger Disposition: HOME SELF-CARE Condition: Stable Instructions (If sedation given, give patient instructions): Laceration (ED) Additional Instructions: Please follow up with orthopedics in the next 1-2 days. Keep wound clean and dry. Return to the emergency department for new or worsening symptoms. Prescriptions: Cephalexin [Keflex] 500 mg PO Q6HR #40 cap Is patient prescribed a controlled substance at d/c from ED?: No Referrals: Nonstaff,Physician [REFERRING] - 1-2 days Jhonatan Lujan MD [STAFF PHYSICIAN] - 1-2 days Time of Disposition: 15:03
--- NOTE | 2022-11-04 12:27 | XR ---
EXAMINATION TYPE: XR finger LT DATE OF EXAM: 11/04/2022 12:19 PM INDICATION: Patient age:Male; 47 years old; Reason for study: thumb; [facility]. COMPARISON: None TECHNIQUE: Frontal, lateral and oblique views of the first digit of the left hand were obtained. FINDINGS: Minimally displaced transverse fracture of the distal first phalanx with suspected tiny oss eous fragments within the surrounding soft tissues. No dislocation. There is overlying soft tissue ed joe with skin defect consistent with laceration. No definitive metallic foreign bodies remaining. IMPRESSION: Minimally displaced transverse fracture of the distal first phalanx with associated laceration and frost spected tiny osseous fragments within the surrounding soft tissues.
[2022-11-04] MEDS ORDERED: LIDOCAINE 1% INJ 10MG/ML (30 ML VIAL-PF) SQ ONE (13:32)
[2022-11-04 14:47] VITALS: BP 145/99; PULSE 86
[2022-11-04 16:25] VITALS: RESP 18
== END 2022-11-04 16:25 | disposition home or self-care (01) ==
LOC: EC 11:19 → SUPCPDRO 11:19 → EC 16:25
DX: S62.522A Displaced fracture of distal phalanx of left thumb, initial encounter for closed fracture (principal); E11.9 Type 2 diabetes mellitus without complications; I10 Essential (primary) hypertension; F31.9 Bipolar disorder, unspecified; F12.90 Cannabis use, unspecified, uncomplicated; Z79.4 Long term (current) use of insulin; Z79.84 Long term (current) use of oral hypoglycemic drugs; Z79.899 Other long term (current) drug therapy; Z88.6 Allergy status to analgesic agent; Z88.8 Allergy status to other drugs, medicaments and biological substances; Z88.5 Allergy status to narcotic agent; Z23 Encounter for immunization; W31.2XXA Contact with powered woodworking and forming machines, initial encounter
CPT/HCPCS: 73140; 90715; 99283; 96365; 96375; 96376; 90471; 12002; J2270; J0690; J2001